=== PATIENT | male | born 1995 | race Asian ===

== ENCOUNTER 2022-04-13 12:54 | Emergency (ER) | payer OTHER, SELFPAY ==
[2022-04-13 14:23] LABS: HIV (1/2) Antibody/Antigen Non-Reactive (NonReactive); HIV 1/2 INDEX 0.16 S/CO (<1.00); Hep C IgG Ab Non-Reactive (NonReactive); Hep C Index 0.07 S/CO (0-0.79)
[2022-04-13 20:54] LABS: HBSAB Concentration 10560.91 mIU/mL; Hep B Surf AB Reactive (NonReactive)
== END 2022-04-13 13:38 | disposition home or self-care (01) ==
LOC: ERS 12:54
DX: S71.132A Puncture wound without foreign body, left thigh, initial encounter (principal); W46.1XXA Contact with contaminated hypodermic needle, initial encounter
CPT/HCPCS: 36415; 99283